=== PATIENT | female | born 1965 | race Caucasian/White ===

== ENCOUNTER 2018-11-12 14:35 | Inpatient (IN) | payer MEDICAID ==
[~2018-11-12] VITALS: Ht 162.6 cm; Wt 69.3 kg
[2018-11-12] MEDS ORDERED: SODIUM CHLORIDE 0.9% 1,000ML IVBOLUS ONE ×2 (15:00→15:30)
[2018-11-12] MEDS ORDERED: PLEASE ENTER HEIGHT AND WEIGHT MC SCH (15:00)
[2018-11-12] MEDS ORDERED: ONDANSETRON 2MG/ML, 2ML IVPush ONE (15:00)
[2018-11-12] MEDS ORDERED: ONDANSETRON 2MG/ML, 2ML ONE (15:28)
[2018-11-12] MEDS ORDERED: LORazepam 2 MG/ML, 1ML ONE (15:28)
[2018-11-12] MEDS ORDERED: VANCOMYCIN PER PHARMACY MC ONE (15:30)
[2018-11-12] MEDS ORDERED: LORazepam 2 MG/ML, 1ML IVPush ONE (15:30)
[2018-11-12 15:35] LABS: BASOPHILS # (AUTO) 0.05 x10^3/uL (0-0.1); BASOPHILS % (AUTO) 0 % (0-1); EOSINOPHILS # (AUTO) 0.18 x10^3/uL (0-0.4); EOSINOPHILS % (AUTO) 2 % (1-7); LYMPHOCYTES # (AUTO) 3.09 x10^3/uL (1-3.4); LYMPHOCYTES % (AUTO) 30 % (22-44); MD NO; MEAN CORPUSCULAR HEMOGLOBIN 30.6 pg (27.0-34.8); MEAN CORPUSCULAR HGB CONC 33.3 g/dL (32.4-35.8); MEAN CORPUSCULAR VOLUME 91.7 fL (80-100); MEAN PLATELET VOLUME 8.1 fL (7.4-10.4); MONOCYTES # (AUTO) 0.86 x10^3/uL (0.2-0.8); MONOCYTES % (AUTO) 8 % (2-9); NEUTROPHILS # (AUTO) 6.18 x10^3/uL (1.8-6.8); NEUTROPHILS % (AUTO) 60 % (42-75); PLATELET COUNT 378 x10^3/uL (130-400); RED BLOOD COUNT 5.21 x10^6/uL (3.82-5.3); RED CELL DISTRIBUTION WIDTH 13.1 % (9.6-15.2)
[2018-11-12 15:38] LABS: HCT (SEDRATE) 47.7 % (34.6-47.8)
[2018-11-12 15:43] LABS: ALANINE AMINOTRANSFERASE 42 U/L (12-78); ALBUMIN 4.1 g/dL (3.4-5.0); ANION GAP 6 mmol/L (5-15); C-REACTIVE PROTEIN, QUANT 0.13 mg/dL (0.02-0.49); CALCIUM 9.5 mg/dL (8.5-10.1); CHLORIDE 109 mmol/L (98-107)
[2018-11-12 15:46] LABS: ALKALINE PHOSPHATASE 102 U/L (45-117); BILIRUBIN,TOTAL 0.4 mg/dL (0.2-1.0); TOTAL PROTEIN 8.7 g/dL (6.4-8.2)
[2018-11-12] MEDS ORDERED: VANCOMYCIN 1,300 MG in SODIUM CHLORIDE 0.9% 250 ML IV ONE (16:00)
--- NOTE | 2018-11-12 16:27 | NUR ---
STRAIGHT CATH URINE OBTAINED AND WALKED TO LAB
--- NOTE | 2018-11-12 17:07 | NUR ---
IV ABX STARTED AFTER BLOOD CULTURES DRAWN
[2018-11-12 17:30] LABS: AMPHETAMINE SCREEN, URINE Negative (Negative); BARBITURATE SCREEN, URINE Negative (Negative); BENZODIAZEPINE SCREEN, URINE Negative (Negative); CANNABINOID SCREEN, URINE Positive (Negative); COCAINE SCREEN, URINE Negative (Negative); METHADONE SCREEN, URINE Negative (Negative); OPIATE SCREEN, URINE Negative (Negative)
--- NOTE | 2018-11-12 17:55 | NUR ---
PT AMBULATED TO BATHROOM WITH STEADY GAIT
[2018-11-12 17:59] LABS: CULTURE INDICATED? NO; MICROSCOPIC NOT IND
--- NOTE | 2018-11-12 18:12 | NUR ---
PTS CHART UP FOR RECHECK
[2018-11-12] MEDS ORDERED: OXYcodone/APAP 10/325MG TABLET ONE (18:29)
[2018-11-12] MEDS ORDERED: OXYcodone/APAP 10/325MG TABLET PO ONE (18:30)
--- NOTE | 2018-11-12 18:33 | NUR ---
PT MEDICATED FOR PAIN PER EMAR
[2018-11-12] MEDS: SODIUM CHLORIDE 0.9% 1,000 ML IV SCH (18:49)
[2018-11-12] MEDS ORDERED: BISACODYL 10 MG SUPP PR PRN (19:00)
[2018-11-12] MEDS ORDERED: POLYETHYLENE GLYCOL 17 GM PACKET PO PRN (19:00)
[2018-11-12] MEDS ORDERED: ONDANSETRON 2MG/ML, 2ML IVPush PRN (19:00)
--- NOTE | 2018-11-12 19:34 | NUR ---
provided pt with dinner
[2018-11-12] MEDS ORDERED: GABA300C10 PO (20:04)
[2018-11-12] MEDS ORDERED: KETOROLAC 30 MG/1 ML ONE (20:07)
[2018-11-12] MEDS: KETOROLAC 30 MG/1 ML IV PRN (20:09)
--- NOTE | 2018-11-12 20:21 | NUR ---
HOSPITAL BED REQUESTED
--- NOTE | 2018-11-12 21:34 | NUR ---
PT RESTING ON GURNEY, RR EVEN AND UNLABORED. PT ON CONT SPO2, BP, AND WAFER FAB OPERATOR, VSS. NAD NOTED. PT DENIES NEEDS ATT.
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
--- NOTE | 2018-11-12 22:00 | NUR ---
REPORT GIVEN TO CRISTELA CLARKE
[2018-11-12 22:25] VITALS: BP 103/66
[2018-11-12] MEDS: GABAPENTIN 300 MG CAPSULE PO SCH (23:11)
[2018-11-13] MEDS: SODIUM CHLORIDE 0.9% 1,000 ML IV SCH ×2 (03:12→15:46)
[2018-11-13 03:20] VITALS: BP 101/66
[2018-11-13] MEDS: KETOROLAC 30 MG/1 ML IV PRN ×3 (06:11→22:12)
[2018-11-13 06:20] LABS: BASOPHILS # (AUTO) 0.03 x10^3/uL (0-0.1); BASOPHILS % (AUTO) 1 % (0-1); EOSINOPHILS # (AUTO) 0.21 x10^3/uL (0-0.4); EOSINOPHILS % (AUTO) 3 % (1-7); LYMPHOCYTES # (AUTO) 2.74 x10^3/uL (1-3.4); LYMPHOCYTES % (AUTO) 39 % (22-44); MD NO; MEAN CORPUSCULAR HEMOGLOBIN 31.6 pg (27.0-34.8); MEAN CORPUSCULAR HGB CONC 33.8 g/dL (32.4-35.8); MEAN CORPUSCULAR VOLUME 93.3 fL (80-100); MONOCYTES # (AUTO) 0.77 x10^3/uL (0.2-0.8); MONOCYTES % (AUTO) 11 % (2-9); NEUTROPHILS # (AUTO) 3.31 x10^3/uL (1.8-6.8); NEUTROPHILS % (AUTO) 47 % (42-75); PLATELET COUNT 282 x10^3/uL (130-400); RED BLOOD COUNT 4.03 x10^6/uL (3.82-5.3); RED CELL DISTRIBUTION WIDTH 12.9 % (9.6-15.2)
[2018-11-13 06:40] LABS: CHLORIDE 114 mmol/L (98-107)
[2018-11-13 06:51] LABS: ALANINE AMINOTRANSFERASE 36 U/L (12-78); ALBUMIN 2.9 g/dL (3.4-5.0); ALKALINE PHOSPHATASE 73 U/L (45-117); ANION GAP 5 mmol/L (5-15); BILIRUBIN,TOTAL 0.5 mg/dL (0.2-1.0); CALCIUM 8.1 mg/dL (8.5-10.1); CREATININE 0.66 mg/dL (0.55-1.02)
[2018-11-13] MEDS ORDERED: GADOBUTROL 7.5 MMOL/7.5 ML PFS ONE (07:12)
[2018-11-13 08:00] VITALS: BP 95/61
[2018-11-13] MEDS: GABAPENTIN 300 MG CAPSULE PO SCH ×3 (09:16→20:10)
[2018-11-13] MEDS: SENNA/DOCUSATE TABLET PO SCH (09:16)
[2018-11-13] MEDS: ACETAMINOPHEN 325 MG TABLET PO PRN ×2 (09:26→20:10)
[2018-11-13 12:34] VITALS: BP 115/76
[2018-11-13 21:40] VITALS: BP 110/67
[2018-11-14] MEDS: ACETAMINOPHEN 325 MG TABLET PO PRN ×3 (01:49→10:16)
[2018-11-14] MEDS: SODIUM CHLORIDE 0.9% 1,000 ML IV SCH (01:51)
[2018-11-14 01:53] VITALS: BP 102/72
[2018-11-14] MEDS: KETOROLAC 30 MG/1 ML IV PRN (04:51)
[2018-11-14 07:00] VITALS: BP 113/66
[2018-11-14] MEDS: SENNA/DOCUSATE TABLET PO SCH (08:39)
[2018-11-14] MEDS: GABAPENTIN 300 MG CAPSULE PO SCH ×3 (08:39→20:54)
[2018-11-14] MEDS ORDERED: ASPIRIN 325 MG TABLET PO ONE (12:00)
[2018-11-14] MEDS ORDERED: MAALOX/HYOSCYAMINE/LIDOCAINE 45 ML BTL PO PRN (12:00)
[2018-11-14] MEDS: ENOXAPARIN 40 MG/0.4 ML SQ SCH (12:00)
[2018-11-14 12:13] VITALS: BP 134/79
[2018-11-14] MEDS: FAMOTIDINE 20 MG TABLET PO SCH ×2 (12:31→20:54)
[2018-11-14] MEDS: LIDODERM 5% PATCH TD SCH (12:32)
[2018-11-14 13:15] LABS: TROPONIN I < 0.015 ng/mL (0.000-0.045)
[2018-11-14 18:17] LABS: TROPONIN I < 0.015 ng/mL (0.000-0.045)
[2018-11-14 19:00] VITALS: BP 132/74
[2018-11-15] MEDS: ACETAMINOPHEN 325 MG TABLET PO PRN ×2 (01:04→07:01)
[2018-11-15 01:20] VITALS: BP 104/65
[2018-11-15 07:13] VITALS: BP 114/76
[2018-11-15] MEDS: SENNA/DOCUSATE TABLET PO SCH (09:07)
[2018-11-15] MEDS: GABAPENTIN 300 MG CAPSULE PO SCH ×2 (09:07→16:23)
[2018-11-15] MEDS: FAMOTIDINE 20 MG TABLET PO SCH (09:07)
[2018-11-15] MEDS: ENOXAPARIN 40 MG/0.4 ML SQ SCH (12:00)
[2018-11-15] MEDS: LIDODERM 5% PATCH TD SCH (12:14)
[2018-11-15 13:35] VITALS: BP 115/74
[2018-11-15] MEDS ORDERED: CALC200T3 PO (16:39)
[2018-11-15] MEDS ORDERED: SODI44SP NAS (16:39)
[2018-11-15] MEDS ORDERED: ACET325T14 PO (16:39)
[2018-11-15 19:13] VITALS: BP 116/77
[2018-11-15] MEDS ORDERED: SODIUM CHLORIDE NASAL SPRAY 45ML BOTTLE NAS SCH (21:00)
== END 2018-11-15 20:15 | disposition home or self-care (01) | DRG 872 ==
LOC: ED 17:11 → EDIP 18:20 → 4NOR 22:30
PROVIDERS: ADMIT Hospitalist; ATTEND Hospitalist
PROC: 0T9B70Z Drainage of Bladder with Drainage Device, Via Natural or Artificial Opening (ICD-10-PCS; principal; 2018-11-12)
DX: A41.9 Sepsis, unspecified organism (principal); R65.20 Severe sepsis without septic shock; F12.10 Cannabis abuse, uncomplicated; M51.36 Other intervertebral disc degeneration, lumbar region; S09.90XA Unspecified injury of head, initial encounter; W18.39XA Other fall on same level, initial encounter; R53.81 Other malaise; S61.012A Laceration without foreign body of left thumb without damage to nail, initial encounter; Z72.0 Tobacco use; Z86.19 Personal history of other infectious and parasitic diseases; Z90.710 Acquired absence of both cervix and uterus; Z90.49 Acquired absence of other specified parts of digestive tract; Y93.89 Activity, other specified; Y92.89 Other specified places as the place of occurrence of the external cause; Y99.8 Other external cause status; Z88.6 Allergy status to analgesic agent
CPT/HCPCS: 36415; 70450; 71045; 72131; 72157; 72158; 80053; 80307; 81003; 83605; 84145; 84484; 85025; 85651; 86140; 86141; 87040; 93005; 93306; 96365; 96366; 96375; A9585; G0378; J1885; J2405; J3370; J2060; J7030; J7050

== ENCOUNTER 2021-04-13 13:11 | Emergency (ER) | payer MEDICAID ==
[~2021-04-13] VITALS: Ht 162.6 cm; Wt 76.1 kg
[~2021-04-13 13:11] MED LIST: ACET325T14 PO; CALC200T3 PO; GABA300C10 PO; SODI44SP NAS
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
--- NOTE | 2021-04-13 13:54 | NUR ---
CIARA SHAH AT BEDSIDE FOR EVAL.
[2021-04-13 14:22] LABS: BASOPHILS % (AUTO) 1 % (0-1); EOSINOPHILS % (AUTO) 2 % (1-7); LYMPHOCYTES % (AUTO) 32 % (22-44); MONOCYTES % (AUTO) 13 % (2-9); NEUTROPHILS % (AUTO) 53 % (42-75); PLATELET COUNT 332 x10^3/uL (130-400); RED BLOOD COUNT 5.13 x10^6/uL (3.82-5.3); RED CELL DISTRIBUTION WIDTH 12.7 % (9.6-15.2)
[2021-04-13 14:32] LABS: ALANINE AMINOTRANSFERASE 95 U/L (12-78); ALBUMIN 3.3 g/dL (3.4-5.0); ANION GAP 8 mmol/L (5-15); CALCIUM 8.6 mg/dL (8.5-10.1); CHLORIDE 112 mmol/L (98-107); CREATININE 0.85 mg/dL (0.55-1.02)
[2021-04-13 14:34] LABS: ALKALINE PHOSPHATASE 128 U/L (45-117); BILIRUBIN,TOTAL 0.3 mg/dL (0.2-1.0); TOTAL PROTEIN 7.5 g/dL (6.4-8.2)
[2021-04-13 14:39] VITALS: BP 107/69
--- NOTE | 2021-04-13 14:39 | NUR ---
PT RESTING ON GURNEY. NADN. EATON.
--- NOTE | 2021-04-13 14:52 | NUR ---
ERP DR. PARKER AT BEDSIDE FOR RE-EVAL.
== END 2021-04-13 15:12 | disposition home or self-care (01) ==
LOC: ED 14:59
DX: T20.00XA Burn of unspecified degree of head, face, and neck, unspecified site, initial encounter (principal); T31.0 Burns involving less than 10% of body surface; R74.01 Elevation of levels of liver transaminase levels; Z90.49 Acquired absence of other specified parts of digestive tract; Z88.6 Allergy status to analgesic agent; Z88.5 Allergy status to narcotic agent
CPT/HCPCS: 36415; 80053; 85025; 99283